=== PATIENT | female | born 1955 | race Caucasian/White ===

== ENCOUNTER → 2023-10-06 | Outpatient (CLI) | payer MEDICARE, SELFPAY ==
--- NOTE | 2023-10-07 14:19 | STRESSREP ---
Stress Test Report Date: 10/06/2023 Procedure: Exercise tolerance test/imaging study Indications: Abnormal EKG Consent: Per the patient Procedure: The patient exercised on a Fredo protocol for 4 minutes achieving a peak heart rate of 144 bpm (95% predicted maximal heart rate) with a peak blood pressure 160/82 mmHg and a peak MET capacity of 7 METs. The baseline ECG demonstrated normal sinus rhythm. The peak exercise ECG demonstrated significant baseline artifact. No definite evidence of significant ischemia. EKG during recovery revealed no significant ischemia [There were no cardiac dysrhythmias pretest, during exercise, or recovery]. The functional capacity was considered normal for age. There was [no complaint of chest discomfort during exercise or recovery]. The examination was discontinued secondary to achieving target heart rate. Impression: 1. Technically adequate (percent predicted maximal heart rate greater than 85%) exercise tolerance test 2. Stress test is negative for exercise-induced EKG changes of ischemia 3. The test test is negative for exercise-induced chest pain 4. Functional capacity is normal for age 5. Nuclear images pending Myocardial perfusion imaging study: Technique: The patient was injected with 11.9 mCi of technetium 99m Cardiolite and subsequently rest SPECT Cardiolite nuclear imaging was obtained in the horizontal long, vertical long, and short axis views. The patient exercised on a Fredo protocol. Please see above for details. The patient was injected with 34.6 mCi of technetium 99m Cardiolite and subsequently stress SPECT Cardiolite nuclear imaging was obtained in the horizontal long, vertical long, and short axis views. A gated Cardiolite study at peak stress was obtained. Interpretation: Rest and stress SPECT Cardiolite nuclear imaging status post realignment, normalization, and attenuation correction, demonstrates no evidence of significant ischemia or infarction. The gated Cardiolite study demonstrates no significant regional wall motion abnormalities. The reported LVEF is greater than 70%. Impression: 1. There is no evidence of significant ischemia or infarction. 2. The gated Cardiolite study reports an LVEF of greater than 70%. This note was generated with [employer] software. It may contain incorrect words, spelling, and punctuation that were not noted in checking the note before signing.
== END | disposition home or self-care (01) ==
PROVIDERS: PCP Nurse Practitioner Adult Health
DX: R94.31 Abnormal electrocardiogram [ECG] [EKG] (principal); R07.9 Chest pain, unspecified; I25.10 Atherosclerotic heart disease of native coronary artery without angina pectoris; I10 Essential (primary) hypertension; E78.2 Mixed hyperlipidemia
CPT/HCPCS: 78452; 93017; A9500; A4216; J2785

== ENCOUNTER → 2024-10-25 | Outpatient (CLI) | payer MEDICARE, SELFPAY ==
[2024-10-25 15:24] LABS: Hematocrit 41.4 % (37-47); Hemoglobin 13.7 g/dL (12.0-15.0); Mean Corp Hgb Conc 33.1 g/dL (32-36); Mean Corpuscular Volume 93.9 fL (81-99); Mean Platelet Vol. 8.8 fl (6.2-12.0); Platelet Count 273 K/mm3 (150-450); RBC Distribution Width CV 13.4 % (11.6-14.6); RBC Distribution Width SD 45.9 fl (35.1-43.9); Red Blood Count 4.41 M/mm3 (4.2-5.4); White Blood Count 7.5 K/mm3 (4.4-11.0)
[2024-10-25 15:49] LABS: Albumin, Serum 4.0 g/dL (3.4-4.8); BUN 17 mg/dL (4-19); BUN/Creat Ratio 26.3 RATIO (10-20); Globulin 3.1 g/dL (2.2-4.2); Glucose 98 mg/dL (70-99)
[2024-10-25 15:50] LABS: AST(SGOT) 25 U/L (<=31); Alanine Aminotransfer ALT/SGPT 16 U/L (<=34); Alkaline Phosphatase 63 U/L (35-104); Anion Gap 10 (5-15); Calcium,Total 9.5 mg/dL (7.6-11.0); Carbon Dioxide 28.5 mmol/L (21.0-32.0); Chloride 100 mmol/L (98-108); Potassium 4.4 mmol/L (3.3-5.1)
== END | disposition home or self-care (01) ==
LOC: MTLAB 12:44
PROVIDERS: PCP Nurse Practitioner Adult Health
DX: I25.10 Atherosclerotic heart disease of native coronary artery without angina pectoris (principal); R55 Syncope and collapse; R11.0 Nausea
CPT/HCPCS: 36415; 80053; 85027

== ENCOUNTER → 2024-11-27 | Outpatient (CLI) | payer MEDICARE, SELFPAY ==
--- NOTE | 2024-11-27 13:38 | ECHOCS_ITS ---
Reason For Study Reason For Study: syncope adn collapse Procedure This was a 2D Doppler, Color Flow transthoracic echocardiogram. The study was technically difficult. Contrast injection was performed. Exam performed in department. Left Ventricle Normal LV size. Left ventricular systolic function is normal. The left ventricular ejection fraction is 60 %. No regional wall motion abnormalities noted. Right Ventricle Normal RV size. Normal systolic function. Atria Normal left atrium. Normal right atrium. Mitral Valve Normal mitral valve. Tricuspid Valve Normal tricuspid valve. Aortic Valve Trisinus/trileaflet aortic valve. Pulmonic Valve Normal pulmonic valve. Great Vessels Normal aortic root. The pulmonary artery is normal size. Inferior vena cava collapse with respiration. Pericardium/Pleural No pericardial effusion. Medication 22 gauge I.V. with prn adaptor inserted into right arm. Diluted definity 2ml given slow IV push to enhance endocardial definition. MMode/2D Measurements & Calculations LVIDd: 4.5 cm IVSd: 0.93 cm Ao root diam: 3.4 cm LVIDs: 2.8 cm LVPWd: 0.93 cm FS: 37.9 % LAV(MOD-bp): 37.5 ml LVAd ap4: 31.1 cm2 SV(MOD-sp4): 58.7 ml LAV(MOD-bp) Indexed: 18.9 ml/m2 LVLd ap4: 7.6 cm SI(MOD-sp4): 29.7 ml/m2 LAV(MOD-sp2): 27.7 ml EDV(MOD-sp4): 101.6 ml LAV(MOD-sp4): 43.6 ml EDV(sp4-el): 107.8 ml LVAs ap4: 18.6 cm2 LVLs ap4: 6.7 cm ESV(MOD-sp4): 42.9 ml ESV(sp4-el): 44.1 ml EF(MOD-sp4): 57.8 % EF(sp4-el): 59.1 % SV(sp4-el): 63.7 ml LA A4 area: 17.7 cm2 LA dimension(2D): 3.9 cm RA A4 area: 10.5 cm2 Time Measurements MV dec time: 0.21 sec Doppler Measurements & Calculations MV E max deuce: 72.5 cm/sec Lat Peak E' Deuce: 9.2 cm/sec Med Peak E' Deuce: 8.6 cm/sec MV A max deuce: 71.5 cm/sec E/E' lat: 7.9 E/E' med: 8.4 MV E/A: 1.0 MV V2 max: 86.4 cm/sec MV dec slope: 352.8 cm/sec2 Ao V2 max: 96.6 cm/sec MV max P.0 mmHg Ao max P.8 mmHg MV V2 mean: 57.2 cm/sec Ao V2 mean: 66.4 cm/sec MV mean P.4 mmHg Ao mean P.0 mmHg MV V2 VTI: 28.4 cm Ao V2 VTI: 23.1 cm AV (velocity ratio): 0.95 LV V1 max: 95.5 cm/sec PA V2 max: 96.3 cm/sec LV V1 max P.7 mmHg PA V2 mean: 69.5 cm/sec LV V1 mean P.0 mmHg LV V1 mean: 65.4 cm/sec LV V1 VTI: 22.0 cm ECHO/Echo Complete W/ Contrast Interpretation Summary Normal LV size. Left ventricular systolic function is normal. The left ventricular ejection fraction is 60 %. Contrast injection was performed. Ordering Physician: ANNALEE MALONEY Referring Physician: ANNALEE MALONEY Performed By: Radha Jarvis RCS
== END | disposition home or self-care (01) ==
PROVIDERS: PCP Nurse Practitioner Adult Health
DX: R55 Syncope and collapse (principal)
CPT/HCPCS: 93306; Q9957; A4216; C8929